=== PATIENT | female | born 1970 | race African-American/Black ===

== ENCOUNTER 2016-08-27 18:47 | Emergency (ER) | payer OTHER ==
[~2016-08-27] VITALS: Ht 185.4 cm; Wt 81.8 kg
[~2016-08-27 18:47] MED LIST: Ecotrin PO; Lopressor PO; NO MEDS; TENORETIC 101 TABLET PO; Zestril,Prinivil PO
[2016-08-27 19:42] LABS: HEMATOCRIT 46.3 % (36.0-46.0); MCHC 33.7 G/DL (30.0-36.0); MCV 97.9 FL (83-99); MEAN PLAT.VOLUME 11.2 uM^3 (9.5-12.4); PLATELET COUNT 275 K/uL (156-360); RBC DIS.WIDTH-CV 13.5 % (11.8-14.6); RBC DIS.WIDTH-SD 49.8 % (39-53); RED BLOOD COUNT 4.73 M/uL (3.80-5.20); WHITE BLOOD COUNT 6.5 K/uL (4.1-10.2)
[2016-08-27 20:31] LABS: CHLORIDE 102 mEq/L (99-109); D-DIMER ELISA 0.31 mg/L FEU (< 0.57); SODIUM 135 mEq/L (136-147)
[2016-08-27 20:33] LABS: GLUCOSE 105 mg/dL (70-99)
[2016-08-27 20:34] LABS: ANION GAP 12 MEQ/L (2-14)
[2016-08-27 20:35] LABS: TOTAL BILIRUBIN 1.2 mg/dL (0.0-1.0)
[2016-08-27 20:36] LABS: ALKALINE PHOSPHATASE 137 IU/L (3-129)
[2016-08-27 20:37] LABS: GFR ESTIMATE (CALCULATED) > 59 mL/min/
[2016-08-27 20:38] LABS: UREA NITROGEN (BUN) 26 mg/dL (9-23)
[2016-08-27 20:43] LABS: TROP-I INTERPRETATION NEGATIVE; TROPONIN-I < 0.01 ng/mL (0.0-0.30)
[2016-08-27 21:12] LABS: LIPASE 48 U/L (1.0-51.0)
[2016-08-27 21:55] LABS: MAGNESIUM 1.8 mg/dL (1.3-2.7)
[2016-08-27] MEDS ORDERED: PROTONIX40 MG PO (22:08)
[2016-08-27] MEDS ORDERED: TYLENOL WITH C1 EACH PO (22:16)
[2016-08-27] MEDS ORDERED: PERCOCET 5/31 TABLET PO (22:16)
[2016-08-27 23:11] LABS: TROP-I INTERPRETATION NEGATIVE; TROPONIN-I < 0.01 ng/mL (0.0-0.30)
[2016-08-27 23:17] VITALS: BP 148/88
== END 2016-08-27 23:19 | disposition home or self-care (01) ==
LOC: EME 18:47
PROVIDERS: Emergency Medicine
DX: R07.9 Chest pain, unspecified (principal); R10.13 Epigastric pain; I10 Essential (primary) hypertension; F17.200 Nicotine dependence, unspecified, uncomplicated
CPT/HCPCS: 71010; 74177; 80053; 83690; 83735; 84484; 85027; 85379; 93005; 99281; 99284; J2270; J2405

== ENCOUNTER → 2016-10-18 | Outpatient (CLI) | payer OTHER ==
[~2016-10-18] VITALS: Ht 185.4 cm; Wt 81.7 kg
[~2016-10-18] MED LIST changes: +BENTYL10 MG PO; +BONINE25 MG PO; +HYZAAR 100-11 TABLET PO; +NORVASC10 MG PO; +PERCOCET 5/31 TABLET PO; +PRILOSEC20 MG PO; +PROTONIX40 MG PO; +TYLENOL REGULA325 MG PO; +TYLENOL WITH C1 EACH PO; +ULTRAM50 MG PO
[2016-10-18 13:28] VITALS: BP 124/78
[2016-10-18 15:01] VITALS: BP 140/77
== END | disposition home or self-care (01) ==
LOC: AMB 09-18 10:00
DX: C15.5 Malignant neoplasm of lower third of esophagus (principal); C77.2 Secondary and unspecified malignant neoplasm of intra-abdominal lymph nodes; K29.80 Duodenitis without bleeding; R07.89 Other chest pain; I10 Essential (primary) hypertension; K21.9 Gastro-esophageal reflux disease without esophagitis; I49.9 Cardiac arrhythmia, unspecified; R11.0 Nausea; F17.200 Nicotine dependence, unspecified, uncomplicated
CPT/HCPCS: 71260; 88173; 88305; J0330; J2250; J3010

== ENCOUNTER → 2016-11-23 | Outpatient (CLI) | payer OTHER ==
[~2016-11-23] VITALS: Ht 185.4 cm; Wt 72.7 kg
[~2016-11-23] MED LIST changes: +PERCOCET 10/1 TABLET PO
== END | disposition home or self-care (01) ==
LOC: AMB 08:00
DX: C15.9 Malignant neoplasm of esophagus, unspecified (principal); R13.10 Dysphagia, unspecified; R59.9 Enlarged lymph nodes, unspecified; I10 Essential (primary) hypertension; K21.9 Gastro-esophageal reflux disease without esophagitis; F17.200 Nicotine dependence, unspecified, uncomplicated
CPT/HCPCS: 88305; J2250; J3010

== ENCOUNTER → 2017-02-05 | Outpatient (CLI) | payer OTHER ==
[~2017-02-05] MED LIST changes: +ANTIVERT25 MG PO; +ATIVAN0.5 MG PO; +DURAGESIC25 MCG TD; +FOLIC ACID1 MG PO; +NICODERM CQ1 EAC1 TD; +ROXICODONE15 MG PO; +TYLENOL W/COD1 COMBO PO; +VITAMIN B12 PO; +WELLBUTRIN XL150 MG PO
== END | disposition home or self-care (01) ==
LOC: RES 13:00
DX: C15.9 Malignant neoplasm of esophagus, unspecified (principal)
CPT/HCPCS: 94060; 94726; 94729

== ENCOUNTER → 2017-02-14 | Outpatient (CLI) | payer OTHER ==
[~2017-02-14] VITALS: Ht 185.4 cm; Wt 68.1 kg
== END | disposition home or self-care (01) ==
LOC: AMB 02-07 09:15
PROC: 0DB98ZX Excision of Duodenum, Via Natural or Artificial Opening Endoscopic, Diagnostic (ICD-10-PCS; principal; 2017-02-14)
DX: K31.7 Polyp of stomach and duodenum (principal); C15.9 Malignant neoplasm of esophagus, unspecified; I10 Essential (primary) hypertension; K21.9 Gastro-esophageal reflux disease without esophagitis; Z92.21 Personal history of antineoplastic chemotherapy; Z92.3 Personal history of irradiation; Z93.1 Gastrostomy status
CPT/HCPCS: 88305; J3010

== ENCOUNTER → 2017-03-01 | Outpatient (CLI) | payer OTHER ==
[~2017-03-01] VITALS: Ht 185.4 cm; Wt 68.0 kg
[2017-03-01 11:26] LABS: HEMATOCRIT 33.5 % (36.0-46.0)
[2017-03-01 11:43] LABS: MCV 108.1 FL (83-99)
== END | disposition home or self-care (01) ==
LOC: AMB 10:45
PROVIDERS: Internal Medicine Gastroenterology
DX: Z43.1 Encounter for attention to gastrostomy (principal); C15.5 Malignant neoplasm of lower third of esophagus; Z92.3 Personal history of irradiation; Z92.21 Personal history of antineoplastic chemotherapy; K29.80 Duodenitis without bleeding
CPT/HCPCS: 85014; 85018; 93005; J2250

== ENCOUNTER 2017-07-11 13:35 | Emergency (ER) | payer OTHER ==
[~2017-07-11] VITALS: Ht 185.4 cm; Wt 58.2 kg
[2017-07-11 17:51] VITALS: BP 153/116
== END 2017-07-11 17:55 | disposition home or self-care (01) ==
LOC: EME 13:35
DX: Z43.4 Encounter for attention to other artificial openings of digestive tract (principal); Z85.01 Personal history of malignant neoplasm of esophagus; I10 Essential (primary) hypertension; F17.200 Nicotine dependence, unspecified, uncomplicated

== ENCOUNTER 2017-11-30 14:47 | Emergency (ER) | payer OTHER ==
[~2017-11-30] VITALS: Ht 185.4 cm; Wt 63.9 kg
[2017-11-30 17:00] LABS: HEMATOCRIT 32.9 % (36.0-46.0); HEMOGLOBIN 11.1 G/DL (11.9-15.5); MCH 33.2 PG (29.0-34.0); MCHC 33.7 G/DL (30.0-36.0); MCV 98.5 FL (83-99); PLATELET COUNT 260 K/uL (156-360); RBC DIS.WIDTH-CV 13.2 % (11.8-14.6); RBC DIS.WIDTH-SD 47.8 % (39-53); RED BLOOD COUNT 3.34 M/uL (3.80-5.20); WHITE BLOOD COUNT 8.8 K/uL (4.1-10.2)
[2017-11-30 17:08] LABS: ALBUMIN 4.2 g/dL (3.2-4.8); CHLORIDE 104 mEq/L (99-109); POTASSIUM 4.1 mEq/L (3.7-5.4); PTT 30.8 SEC (25-37); SODIUM 141 mEq/L (136-147)
[2017-11-30 17:10] LABS: GLUCOSE 97 mg/dL (70-99); TOTAL PROTEIN 8.1 g/dL (6.4-8.3)
[2017-11-30 17:12] LABS: TOTAL BILIRUBIN 0.6 mg/dL (0.0-1.0)
[2017-11-30 17:14] LABS: ALKALINE PHOSPHATASE 238 IU/L (3-129); GFR ESTIMATE (CALCULATED) > 59 mL/min/
[2017-11-30 17:15] LABS: UREA NITROGEN (BUN) 16 mg/dL (9-23)
[2017-11-30 17:16] LABS: AST (GOT) 25 IU/L (2-34)
[2017-11-30 17:17] LABS: ALT (GPT) 12 IU/L (3-49)
[2017-11-30] MEDS ORDERED: PERCOCET 5/31 TABLET PO (17:26)
[2017-11-30 18:06] VITALS: BP 136/89
== END 2017-11-30 18:08 | disposition home or self-care (01) ==
LOC: EME 14:47
PROVIDERS: Emergency Medicine
DX: S82.022A Displaced longitudinal fracture of left patella, initial encounter for closed fracture (principal); W01.0XXA Fall on same level from slipping, tripping and stumbling without subsequent striking against object, initial encounter; F32.9 Major depressive disorder, single episode, unspecified; Z87.891 Personal history of nicotine dependence; Z93.4 Other artificial openings of gastrointestinal tract status; Z85.01 Personal history of malignant neoplasm of esophagus; Z91.048 Other nonmedicinal substance allergy status
CPT/HCPCS: 73564; 80053; 85027; 85610; 85730; 99281; 99285; J3010; J7030